=== PATIENT | male | born 1990 | race Caucasian/White ===

== ENCOUNTER 2022-05-05 11:39 | Emergency (ER) | payer SELFPAY ==
[2022-05-05] MEDS ORDERED: Lidocaine 1% 5 ML VIAL INJECT ONE ×2 (11:52)
[2022-05-05] MEDS ORDERED: Diphtheria,Pertussis(Acell),Tetanus Vaccine 0.5 ML Syringe IM ONE (11:52)
== END 2022-05-05 12:46 | disposition home or self-care (01) ==
LOC: MW.ED 11:39
DX: S67.21XA Crushing injury of right hand, initial encounter (principal); S61.411A Laceration without foreign body of right hand, initial encounter; Z23 Encounter for immunization; W20.8XXA Other cause of strike by thrown, projected or falling object, initial encounter; Y99.0 Civilian activity done for income or pay
CPT/HCPCS: 12001; 73130-26-RT; 73130-RT; 90471; 90715; 99283-25; J3490

== ENCOUNTER 2022-05-17 13:51 | Emergency (ER) | payer SELFPAY | END 2022-05-17 15:13 | disposition home or self-care (01) | LOC: MW.ED 13:51 | DX: T81.49XA Infection following a procedure, other surgical site, initial encounter (principal) | CPT/HCPCS: 99283 ==

== ENCOUNTER 2022-05-23 07:09 | Emergency (ER) | payer SELFPAY | END 2022-05-23 08:22 | disposition home or self-care (01) | LOC: MW.ED 07:09 | DX: M79.642 Pain in left hand (principal) | CPT/HCPCS: 99283 ==

== ENCOUNTER 2023-01-28 09:04 | Emergency (ER) | payer SELFPAY ==
[2023-01-28] MEDS ORDERED: LORazepam 2 MG/ML SDV IVPUSH ONE ×2 (09:22→10:33)
[2023-01-28] MEDS ORDERED: Ondansetron 4 MG/2 ML SDV IVPUSH ONE (09:22)
[2023-01-28] MEDS ORDERED: Sodium Chloride 0.9% 1,000 ML IV ONE ×2 (09:22→09:24)
[2023-01-28 09:56] LABS: EOSINOPHILS ABSOLUTE AUTO 0.03 K/uL (0.00-0.45); EOSINOPHILS PERCENT AUTO 0.3 % (0.0-6.0); HEMATOCRIT 42.4 % (42.0-52.0); HEMOGLOBIN 14.3 g/dL (14.0-18.0); IMMATURE GRAN ABSOLUTE AUTO 0.02 K/uL (0.00-0.05); IMMATURE GRAN PERCENT AUTO 0.2 % (0.0-0.4); LYMPHOCYTES ABSOLUTE AUTO 1.06 K/uL (1.00-4.80); MEAN CORPUSCULAR HEMOGLOBIN 29.8 pg (28.0-32.0); MEAN CORPUSCULAR HGB CONC 33.7 g/dL (32.0-36.0); MEAN CORPUSCULAR VOLUME 88.3 fL (83.0-99.0); MEAN PLATELET VOLUME 8.5 fL (9.4-12.4); MONOCYTES ABSOLUTE AUTO 0.75 K/uL (0.00-0.80); MONOCYTES PERCENT AUTO 7.8 % (0.0-8.0); NEUTROPHILS ABSOLUTE AUTO 7.69 K/uL (1.80-7.70); NEUTROPHILS PERCENT AUTO 79.7 % (41.0-71.0); PLATELET COUNT,PLT 274 K/uL (150-400); WHITE BLOOD CELL COUNT,WBC 9.65 K/uL (3.9-11.3)
[2023-01-28 10:26] LABS: ALBUMIN 3.9 g/dL (3.4-5.0); BILIRUBIN TOTAL 0.4 mg/dL (0.2-1.0); CALCIUM 8.4 mg/dL (8.5-10.1); CARBON DIOXIDE,CO2 23.1 mmol/L (21.0-32.0); CREATININE 0.8 mg/dL (0.8-1.3); EST CRCL DRUG DOSING (CG) 149.81 mL/min; POTASSIUM,K 4.1 mmol/L (3.5-5.1); PROTEIN TOTAL,TP 7.9 g/dL (6.4-8.2)
== END 2023-01-28 10:57 | disposition home or self-care (01) ==
LOC: MW.ED 09:04
DX: F10.230 Alcohol dependence with withdrawal, uncomplicated (principal)
CPT/HCPCS: 36415; 80053; 80307; 85025; 96361; 96374; 96375; 96376; 99284; J2060; J2405; J7030

== ENCOUNTER 2024-07-22 12:43 | Emergency (ER) | payer SELFPAY | END 2024-07-22 15:55 | LOC: MW.ED 12:43 | DX: Z71.1 Person with feared health complaint in whom no diagnosis is made (principal); Z75.3 Unavailability and inaccessibility of health-care facilities | CPT/HCPCS: 99282; 99283 ==